=== PATIENT | male | born 1965 | race Two or more races ===

== ENCOUNTER → 2020-09-22 15:28 | Outpatient (BNVA) | payer OTHER, SELFPAY | PROVIDERS: Visit Provider Urology | DX: N40.1 Benign prostatic hyperplasia with lower urinary tract symptoms (principal); N13.8 Other obstructive and reflux uropathy; R35.1 Nocturia; R39.12 Poor urinary stream | CPT/HCPCS: 99202 ==

== ENCOUNTER 2021-03-24 10:12 | Outpatient (REF) | payer OTHER, SELFPAY | END 2021-03-24 10:13 | disposition home or self-care (01) | LOC: HO.10HDL 10:12 | PROVIDERS: Visit Provider Urology | DX: Z13.89 Encounter for screening for other disorder (principal) ==

== ENCOUNTER 2021-03-24 10:45 | Outpatient (REF) | payer OTHER, SELFPAY ==
[2021-03-24 14:08] LABS: PSA,Total (Free>4and<10) 3.88 ng/mL (0.00-4.00)
== END 2021-03-24 10:46 | disposition home or self-care (01) ==
LOC: HO.10HDL 10:45
PROVIDERS: Visit Provider Urology
DX: Z12.5 Encounter for screening for malignant neoplasm of prostate (principal); N40.1 Benign prostatic hyperplasia with lower urinary tract symptoms; N13.8 Other obstructive and reflux uropathy
CPT/HCPCS: 36415; 84153

== ENCOUNTER → 2021-04-04 09:12 | Outpatient (BNVA) | payer OTHER, SELFPAY | PROVIDERS: Visit Provider Urology | DX: N40.1 Benign prostatic hyperplasia with lower urinary tract symptoms (principal); R39.12 Poor urinary stream; R35.1 Nocturia; N13.8 Other obstructive and reflux uropathy; R97.20 Elevated prostate specific antigen [PSA] | CPT/HCPCS: 51798; 99212 ==

== ENCOUNTER 2021-10-10 08:43 | Outpatient (REF) | payer OTHER, SELFPAY | END 2021-10-10 08:44 | disposition home or self-care (01) | LOC: HO.LAB 08:43 | PROVIDERS: Visit Provider Urology | DX: Z12.5 Encounter for screening for malignant neoplasm of prostate (principal); N13.8 Other obstructive and reflux uropathy; N40.1 Benign prostatic hyperplasia with lower urinary tract symptoms | CPT/HCPCS: 36415; 84153 ==

== ENCOUNTER → 2021-10-13 09:18 | Outpatient (BNVA) | payer OTHER, MEDICAID, SELFPAY | PROVIDERS: Visit Provider Urology | DX: N40.1 Benign prostatic hyperplasia with lower urinary tract symptoms (principal); N13.8 Other obstructive and reflux uropathy; R35.1 Nocturia; R39.12 Poor urinary stream; R97.20 Elevated prostate specific antigen [PSA] | CPT/HCPCS: 51798; 99212 ==

== ENCOUNTER 2022-10-05 09:42 | Outpatient (REF) | payer MEDICAID, SELFPAY ==
[2022-10-05 11:47] LABS: PSA,Total (Free>4and<10) 4.03 ng/mL (0.00-4.00)
[2022-10-08 11:03] LABS: Free Prostate Spec Ag 1.1 ng/mL; Percent Free Prostate Spec Ag 26 % (calc) (>25); Prostate Specific Ag Total 4.3 ng/mL (< OR = 4.0)
== END 2022-10-05 09:43 | disposition home or self-care (01) ==
LOC: HO.LAB 09:42
PROVIDERS: Visit Provider Urology
DX: Z12.5 Encounter for screening for malignant neoplasm of prostate (principal); N13.8 Other obstructive and reflux uropathy; N40.1 Benign prostatic hyperplasia with lower urinary tract symptoms
CPT/HCPCS: 36415; 84153; 84154

== ENCOUNTER → 2022-10-12 09:03 | Outpatient (BNVA) | payer MEDICAID, SELFPAY | PROVIDERS: PCP Internal Medicine; Visit Provider Urology | DX: N40.1 Benign prostatic hyperplasia with lower urinary tract symptoms (principal); R39.12 Poor urinary stream; R35.1 Nocturia; N13.8 Other obstructive and reflux uropathy | CPT/HCPCS: 51798; 99212 ==

== ENCOUNTER → 2022-11-13 09:19 | Outpatient (BNVA) | payer MEDICAID, SELFPAY | PROVIDERS: PCP Internal Medicine; Visit Provider Urology | DX: N40.1 Benign prostatic hyperplasia with lower urinary tract symptoms (principal); N13.8 Other obstructive and reflux uropathy; R39.15 Urgency of urination | CPT/HCPCS: 52000; 99212 ==

== ENCOUNTER 2023-01-16 08:57 | Outpatient (AMB) | payer MEDICAID, SELFPAY ==
--- NOTE | 2023-01-16 09:06 | MHC.OFFVIS ---
Intake Intake Visit Reasons: 2m/med check Intake Note: Patient is present for Follow Up Medication Review Urology Med: Finasteride, Tadalafil, Tamsulosin Antibiotic Allergy:None Blood Thinner: Aspirin [facility] Allergies No Known Allergies Allergy (Verified 01/16/23 09:09) Medication List - Last Reconciled 01/16/23 by Lencho Colorado MD aspirin 81 mg PO DAILY atorvastatin 80 mg PO DAILY cetirizine 10 mg PO DAILY finasteride 5 mg PO DAILY 90 days tadalafil 5 mg PO DAILY 90 days tamsulosin 0.4 mg PO DAILY 90 days HPI HPI Comments History of Present Illness Details Mike is a pleasant male. No listed primary care. He is seen for the following urologic conditions - BPH - nocturia - elevated PSA - erectile dysfunction Jamaican translation provided by qualified medical data analyst Cystoscopy with enlarged prostate, wide base Bladder with grade 1 trabeculation Good response to tadalafil 5 mg daily Effective emptying and bladder control Lower urinary tract symptoms Initial presentation Has noticed hesitancy with stream, nocturia getting up 2 times at night Medication - alpha-jory and finasteride Metabolic - high-intensity statin PSA 07/17 4.2, 03/16 3.8, 10/15 3.9, 10/16 4.3 26% Erectile dysfunction Slowly progressive Concurrent diagnoses dyslipidemia High-intensity statin use PFSH Medical History Heart disease Seasonal allergies Subclinical hypothyroidism Review of Systems Const Denies chills and Denies fever(s) Card Reports no additional complaints and Denies syncope Resp Denies cough GI Denies abdominal pain and Denies heartburn Reports as per HPI and Denies change in libido Neuro Denies syncope Psych Denies change in libido Endo Denies change in libido Physical Exam Const General: cooperative, healthy appearing, comfortable and no acute distress Orientation/consciousness: patient oriented x3 HEENT Face and sinus: Yes normal facial exam Mouth: moist mucous membranes Neck Neck: Yes normal visual inspection, Yes full ROM and Yes trachea midline Chest Chest palpation & inspection: normal inspection of the chest Resp Effort & Inspection: normal respiratory effort, able to speak in complete sentences and no respiratory distress GI Inspection: Yes normal to inspection Back/Spine/Pelvis Cervical Spine: normal cervical lordosis Thoracic/Lumbar Spine: thoracic and lumbar spine normal to inspection Skin General skin exam: no rashes or lesions noted Neuro General: patient oriented x3, gait normal, tone normal and moves all extremities Extrem General: Yes normal to inspection and Yes capillary refill normal Assessment & Plan Assessment & Plan (1) Urinary urgency: Code(s): R39.15 - Urgency of urination (2) Nocturia more than twice per night: Code(s): R35.1 - Nocturia (3) BPH w urinary obs/LUTS: Code(s): N40.1 - Benign prostatic hyperplasia with lower urinary tract symptoms; N13.8 - Other obstructive and reflux uropathy Plan 6 month follow-up PVR Patient Instructions: Imaging studies, laboratory and physical exam results were discussed and reviewed in detail. No major barriers to patient understanding were identified. An opportunity to ask questions regarding the treatment plan was provided. All questions were answered. The patient expressed understanding and agreement with the above treatment plan. The patient is aware they should contact our office by phone for worsening of their current condition or the appearance of new urologic symptoms. Compliance is encouraged with any medications and followup testing that is ordered. It is a privilege to participate in the urologic care of your patient. If you have any questions or concerns regarding treatment for the above conditions, or other urologic issues, please do not hesitate to contact me. The office telephone contact is [phone]. This note is constructed using voice recognition software. While every effort has been made to ensure accuracy camera operator errors may have been included. Yours sincerely, Dr Lencho Colorado MD, [facility] - Urology Providers of Expert, Compassionate Care for the Genitourinary System Coding Level of Care Code Est Pt Level 3 (37671) Diagnoses Urinary urgency R39.15 Nocturia more than twice per night R35.1 BPH w urinary obs/LUTS N40.1; N13.8
== END 2023-01-16 09:40 | disposition home or self-care (01) ==
PROVIDERS: PCP Internal Medicine; Visit Provider Urology
DX: N40.1 Benign prostatic hyperplasia with lower urinary tract symptoms (principal); R39.15 Urgency of urination; R35.1 Nocturia; N13.8 Other obstructive and reflux uropathy
CPT/HCPCS: 99213

== ENCOUNTER → 2023-01-16 08:57 | Outpatient (BNVA) | payer MEDICAID, SELFPAY | PROVIDERS: PCP Internal Medicine; Visit Provider Urology | DX: N40.1 Benign prostatic hyperplasia with lower urinary tract symptoms (principal); N13.8 Other obstructive and reflux uropathy; R35.1 Nocturia; R39.15 Urgency of urination | CPT/HCPCS: 99212 ==

== ENCOUNTER 2023-07-26 08:56 | Outpatient (AMB) | payer MEDICAID, SELFPAY ==
--- NOTE | 2023-07-26 09:30 | A.OFFVIS_ITS ---
Intake Intake Visit Reasons: 6M PVR Confirmed Intake Note: Patient presents today for a follow-up on PVR Meds- Finasteride, Tadalafil, Tamsulosin Allergies to Antibiotic- No Known Allergies Blood Thinner- Aspirin Post Void Residual: 19m Patient stated he has to push to urinate and he constantly dribbles. Model Photographers' Required: Yes Accompanied by: Allergies No Known Allergies Allergy (Verified 07/26/23 09:40) Medication List - Last Reconciled 07/26/23 by Lencho Colorado MD aspirin 81 mg PO DAILY atorvastatin 80 mg PO DAILY cetirizine 10 mg PO DAILY finasteride 5 mg PO DAILY 90 days tadalafil 5 mg PO DAILY 90 days tamsulosin 0.4 mg PO DAILY 90 days terazosin 5 mg PO BEDTIME 30 days HPI HPI Comments History of Present Illness Details Mike is a pleasant male. No listed primary care. He is seen for the following urologic conditions - BPH - nocturia - elevated PSA - erectile dysfunction Kazakh translation provided by qualified medical radiation therapist Still with weakness of stream Continue with tadalafil Add terazosin Check PSA Prior Cystoscopy with enlarged prostate, wide base Bladder with grade 1 trabeculation Good response to tadalafil 5 mg daily Effective emptying and bladder control Lower urinary tract symptoms Initial presentation Has noticed hesitancy with stream, nocturia getting up 2 times at night Medication - alpha-jory and finasteride Metabolic - high-intensity statin PSA 07/17 4.2, 03/16 3.8, 10/15 3.9, 10/16 4.3 26% Erectile dysfunction Slowly progressive Concurrent diagnoses dyslipidemia High-intensity statin use [facility] Medical History Subclinical hypothyroidism Seasonal allergies Heart disease Review of Systems Const Denies chills and Denies fever(s) Card Reports no additional complaints and Denies syncope Resp Denies cough GI Denies abdominal pain and Denies heartburn Reports as per HPI and Denies change in libido Neuro Denies syncope Psych Denies change in libido Endo Denies change in libido Physical Exam Const General: cooperative, healthy appearing, comfortable and no acute distress Orientation/consciousness: patient oriented x3 HEENT Face and sinus: Yes normal facial exam Mouth: moist mucous membranes Neck Neck: Yes normal visual inspection, Yes full ROM and Yes trachea midline Chest Chest palpation & inspection: normal inspection of the chest Resp Effort & Inspection: normal respiratory effort, able to speak in complete sentences and no respiratory distress GI Inspection: Yes normal to inspection Back/Spine/Pelvis Cervical Spine: normal cervical lordosis Thoracic/Lumbar Spine: thoracic and lumbar spine normal to inspection Skin General skin exam: no rashes or lesions noted Neuro General: patient oriented x3, gait normal, tone normal and moves all extremities Extrem General: Yes normal to inspection and Yes capillary refill normal Office Procedures Post Void Residual Post Residual Void Post Void Residual (PVR): 19 [id number] Void Residual by ultrasound Assessment & Plan Assessment & Plan (1) Elevated PSA: Code(s): R97.20 - Elevated prostate specific antigen [PSA] (2) Weak urinary stream: Code(s): R39.12 - Poor urinary stream Plan 2m f/u trial terazosin Orders: Orders AMB Post Void Residual by ultrasound Today R33.9 - Retention of urine, unspecified PSA,Total (Free>4and<10) Today R97.20 - Elevated prostate specific antigen [PSA] Medications: New terazosin 5 mg PO BEDTIME 30 caps 1RF 30 days N40.1 - Benign prostatic hyperplasia with lower urinary tract symptoms, R35.0 - Frequency of micturition, R39.12 - Poor urinary stream Patient Instructions: Imaging studies, laboratory and physical exam results were discussed and reviewed in detail. No major barriers to patient understanding were identified. An opportunity to ask questions regarding the treatment plan was provided. All questions were answered. The patient expressed understanding and agreement with the above treatment plan. The patient is aware they should contact our office by phone for worsening of their current condition or the appearance of new urologic symptoms. Compliance is encouraged with any medications and followup testing that is ordered. It is a privilege to participate in the urologic care of your patient. If you have any questions or concerns regarding treatment for the above conditions, or other urologic issues, please do not hesitate to contact me. The office telephone contact is [phone]. This note is constructed using voice recognition software. While every effort has been made to ensure accuracy camelid fiber sorter errors may have been included. Yours sincerely, Dr Lencho Colorado MD, [facility] - Urology Providers of Expert, Compassionate Care for the Genitourinary System Coding Level of Care Code Est Pt Level 4 (04538) Diagnoses Elevated PSA R97.20 Weak urinary stream R39.12 CPT Codes Post Residual Void - PVR CPT Code: 78204-Uqsz Void Residual by ultrasound ([id number])
== END 2023-07-26 10:29 | disposition home or self-care (01) ==
PROVIDERS: PCP Internal Medicine; Visit Provider Urology
DX: R97.20 Elevated prostate specific antigen [PSA] (principal); R39.12 Poor urinary stream
CPT/HCPCS: 99214

== ENCOUNTER → 2023-07-26 08:56 | Outpatient (BNVA) | payer MEDICAID, SELFPAY | PROVIDERS: PCP Internal Medicine; Visit Provider Urology | DX: R97.20 Elevated prostate specific antigen [PSA] (principal); R39.12 Poor urinary stream | CPT/HCPCS: 51798; 99212 ==

== ENCOUNTER 2023-07-26 10:31 | Outpatient (REF) | payer MEDICAID, SELFPAY ==
[2023-07-26 12:08] LABS: PSA,Total (Free>4and<10) 3.54 ng/mL (0.00-4.00)
== END 2023-07-26 10:32 | disposition home or self-care (01) ==
LOC: HO.10HDL 10:31
PROVIDERS: Visit Provider Urology
DX: Z12.5 Encounter for screening for malignant neoplasm of prostate (principal); R97.20 Elevated prostate specific antigen [PSA]
CPT/HCPCS: 36415; 51798; 84153; 99212

== ENCOUNTER 2023-09-27 09:34 | Outpatient (AMB) | payer OTHER, SELFPAY ==
--- NOTE | 2023-09-27 09:35 | MHC.OFFVIS ---
Intake Visit Reasons: 2m/PSA(set) Intake Note: Patient is Present for Telephone Follow Up For Urology Med: Finasteride, Tamsulosin, Terzosin Antibiotic Allergy: None Blood Thinner: Aspirin Allergies No Known Allergies Allergy (Verified 09/27/23 09:37) Medication List - Last Reconciled 09/27/23 by Lencho Colorado MD aspirin 81 mg PO DAILY atorvastatin 80 mg PO DAILY cetirizine 10 mg PO DAILY finasteride 5 mg PO DAILY 90 days tadalafil 5 mg PO DAILY 90 days terazosin 5 mg PO BEDTIME 90 days HPI Comments Details: Mike is a pleasant male. No listed primary care. He is seen for the following urologic conditions - lower urinary tract symptoms on combination therapy - nocturia - elevated PSA - erectile dysfunction Telemedicine Evaluation 15 min Consultation Authenticlick Derek Video Vincentian translation provided by qualified medical device sales Six week follow-up trial of terazosin, review of PSA - continued ongoing care of complex chronic condition It did not pickling operator medication Prescription provided Prior Cystoscopy with enlarged prostate, wide base - Bladder with grade 1 trabeculation Good response to tadalafil 5 mg daily Effective emptying and bladder control Lower urinary tract symptoms Initial presentation Has noticed hesitancy with stream, nocturia getting up 2 times at night Medication - alpha-jory and finasteride and tadalafil Metabolic - high-intensity statin PSA 07/17 4.2, 03/16 3.8, 10/15 3.9, 10/16 4.3 26%, 09/17 3.5 Erectile dysfunction Slowly progressive Concurrent diagnoses dyslipidemia High-intensity statin use [facility] Medical History Subclinical hypothyroidism Seasonal allergies Heart disease Review of Systems Const All systems reviewed & are unremarkable except as noted in HPI and below Reports no additional complaints Resp Reports no additional complaints GI Reports no additional complaints Reports as per HPI Musc Reports no additional complaints Physical Exam Telemedicine evaluation Appropriate responses Regular breathing rate and rhythm HEENT Head: Yes normal to inspection Ears: hearing grossly normal bilaterally Eyes General: appearance normal, both eyes and all related structures Neck Neck: Yes normal visual inspection Chest Chest palpation & inspection: normal inspection of the chest Resp Effort & Inspection: normal respiratory effort and able to speak in complete sentences Telehealth Telehealth Telehealth Platform: Telephone Location of provider rendering services: practice address Location of patient: address on file Patient Identification confirmed using: Name, : Yes Telehealth method: voice only Patient verbally consented to treatment: Yes Patient verbally consented to billing insurance company: Yes Patient informed of any privacy concerns related to visit: Yes Assessment & Plan Assessment & Plan (1) Weak urinary stream: Code(s): R39.12 - Poor urinary stream Category: Medical (2) Elevated PSA: Code(s): R97.20 - Elevated prostate specific antigen [PSA] Category: Medical (3) Nocturia more than twice per night: Code(s): R35.1 - Nocturia Category: Medical (4) BPH w urinary obs/LUTS: Code(s): N40.1 - Benign prostatic hyperplasia with lower urinary tract symptoms; N13.8 - Other obstructive and reflux uropathy Category: Medical (5) Erectile dysfunction: Code(s): N52.9 - Male erectile dysfunction, unspecified Category: Medical Plan Three-month follow-up office Retrial terazosin Medications: Changed From terazosin 5 mg PO BEDTIME 30 days 30 caps 1RF N40.1 - Benign prostatic hyperplasia with lower urinary tract symptoms, R35.0 - Frequency of micturition, R39.12 - Poor urinary stream To terazosin 5 mg PO BEDTIME 90 days 90 caps 0RF N40.1 - Benign prostatic hyperplasia with lower urinary tract symptoms, R35.0 - Frequency of micturition, R39.12 - Poor urinary stream Refilled tadalafil 5 mg PO DAILY 90 days 90 tabs 1RF sexual activity N52.01 - Erectile dysfunction due to arterial insufficiency, R39.15 - Urgency of urination Discontinued tamsulosin Discontinued Reason: Patient Completed Course 0.4 mg PO DAILY 90 days 90 caps 3RF N13.8 - Other obstructive and reflux uropathy, N40.1 - Benign prostatic hyperplasia with lower urinary tract symptoms Patient Instructions: Imaging studies, laboratory and physical exam results were discussed and reviewed in detail. No major barriers to patient understanding were identified. An opportunity to ask questions regarding the treatment plan was provided. All questions were answered. The patient expressed understanding and agreement with the above treatment plan. The patient is aware they should contact our office by phone for worsening of their current condition or the appearance of new urologic symptoms. Compliance is encouraged with any medications and followup testing that is ordered. It is a privilege to participate in the urologic care of your patient. If you have any questions or concerns regarding treatment for the above conditions, or other urologic issues, please do not hesitate to contact me. The office telephone contact is [phone]. This note is constructed using voice recognition software. While every effort has been made to ensure accuracy laboratory analyst errors may have been included. Yours sincerely, Dr Lencho Colorado MD, [facility] - Urology Providers of Expert, Compassionate Care for the Genitourinary System Coding Level of Care Code Tele Est Pt Level 3 (03117) Complex EM visit Add On G2211 Diagnoses Weak urinary stream R39.12 Elevated PSA R97.20 Nocturia more than twice per night R35.1 BPH w urinary obs/LUTS N40.1; N13.8 Erectile dysfunction N52.9
== END 2023-09-27 09:59 | disposition home or self-care (01) ==
LOC: HO.HUSH 09:34
PROVIDERS: PCP Internal Medicine; Visit Provider Urology
DX: N40.1 Benign prostatic hyperplasia with lower urinary tract symptoms (principal); R39.12 Poor urinary stream; R97.20 Elevated prostate specific antigen [PSA]; R35.1 Nocturia; N13.8 Other obstructive and reflux uropathy; N52.9 Male erectile dysfunction, unspecified
CPT/HCPCS: 99213; G2211

== ENCOUNTER → 2023-09-27 09:34 | Outpatient (BNVA) | payer OTHER, SELFPAY | PROVIDERS: PCP Internal Medicine; Visit Provider Urology ==

== ENCOUNTER 2024-12-30 09:41 | Outpatient (AMB) | payer OTHER, SELFPAY ==
--- OUTSIDE RECORDS SUMMARY | 2024-12-30 10:04 | XMS_ITS | Clinical Summary ---
Author Organization [facility] Address [address] [facility] [place] [address] Phone Care Team Providers Care Casualty Claim Adjuster Name Role Phone Jose Ricks MD Primary Care Provider [phone] Allergies No known active allergies Medications aspirin 81 mg EC tablet Take 1 tablet (81 mg total) by mouth 1 (one) time each day. Active finasteride (PROSCAR) 5 mg tablet Take 1 tablet (5 mg total) by mouth 1 (one) time each day. Active terazosin (HYTRIN) 5 mg capsule Take 1 Capsule by mouth at bedtime. Active amLODIPine (NORVASC) 5 mg tabletIndications:H ypertension, unspecified type,Hyperlipidemia , unspecified hyperlipidemia type Take 1 tablet (5 mg total) by mouth 1 (one) time each day. 90 each 2 5 Active ezetimibe (ZETIA) 10 mg tablet Take 1 tablet (10 mg total) by mouth 1 (one) time each day. 90 tablet 1 5 Active Active Problems Problem Noted Date Diagnosed Date HTN (hypertension) 02/06/2024 Overview (04/10/2024): Last Assessment & Plan: The patient was noted to have elevated blood pressure on today's visit. As such, at this point, we will start amlodipine 2.5 mg orally daily for blood pressure control. Assessment & Plan (08/18/2024 12:29 PM EDT): Blood pressure is elevated today 140/94. On my recheck it was similar around 144/90. Increased amlodipine to 5 mg daily. Patient states he is able to monitor his blood pressure at home and will notify the office if it remains elevated over 140/80 regularly. I have reviewed with the patient the importance of a heart healthy lifestyle which includes eating a low-fat low-salt diet, getting regular exercise, maintaining a healthy weight, not smoking, and following up with routine medical care. Orders: Lipid panel; Future amLODIPine (NORVASC) 5 mg tablet; Take 1 tablet (5 mg total) by mouth 1 (one) time each day. Palpitation 02/06/2024 Overview (04/10/2024): Last Assessment & Plan: The patient has been experiencing episodes of palpitations. We will order a Holter monitor to evaluate for any underlying arrhythmias as a cause of her symptoms. Will also order laboratory testing that would include a comprehensive metabolic panel, CBC, magnesium level, and TSH level. HLD (hyperlipidemia) 01/30/2024 Overview (04/10/2024): Last Assessment & Plan: The patient has a history of hyperlipidemia. He was previously on atorvastatin. The patient states that he self discontinued the medication due to apparent side effects from the medication. However, the patient is not able to specifically state the side effects that he had with the medication. At this point, we will repeat his lipid panel to evaluate his lipid control. Depending on the results, then we will discuss the possibility of trying a different statin (not atorvastatin) or considering a nonstatin medication such as ezetimibe. Assessment & Plan (08/18/2024 12:29 PM EDT): Patient with history of hyperlipidemia and previous intolerance to statins. He was started on Zetia after his blood work was completed in January 2024 showing an elevated LDL cholesterol. Discussed today the importance of dietary modifications. Will recheck lipid panel. Orders: Lipid panel; Future amLODIPine (NORVASC) 5 mg tablet; Take 1 tablet (5 mg total) by mouth 1 (one) time each day. Encounters Date Type Department Care Team Description 10/16/2024 Telephone [facility] Cardiology [facility] [address] [facility] [address] [place] [id number] Sy Suggs MD records from Last 3 Months Medical History Medical History Date Comments Subclinical hypothyroidism DX:Melendez bclinical hypothyroidism Seasonal allergies DX:Seasonal a llergies High prostate specific antigen (PSA) DX:High prostate specific antigen (PSA) Benign prostatic hyperplasia without lower urinary tract symptoms DX:Benign prostatic hyper plasia without lower urinary tract symptoms Social History Tobacco Use Types Packs/Day Years Used Date Smoking Tobacco: Never Smokeless Tobacco: Never Alcohol Use Standard Drinks/Week Comments Never 0 (1 standard drink = 0.6 oz pur e alcohol) Sex and Gender Information Value Date Recorded Sex Assigned at Not on file Legal Sex Male 2:57 AM EST Gender Identity Not on file Sexual Orientation Not on file Obstetrics History Last Filed Vital Signs Vital Sign Reading Time Taken Comments Blood Pressure 140/94 08/18/2024 10:18 AM EDT Pulse 74 08/18/2024 10:18 AM EDT Temperature - - Respiratory Rate - - Oxygen Saturation 96% 08/18/2024 10:18 AM EDT Inhaled Oxygen Concentration - - Weight 85.3 kg (188 lb) 08/18/2024 10:18 AM EDT Height 172.7 cm (5' 8 ) 08/18/2024 10:18 AM EDT Body Mass Index 28.59 08/18/2024 10:18 AM EDT Plan of Treatment Upcoming Encounters Date Type Department Care Team (Late st Contact Info) Description 2025 9:00 AM EST Ancillary Procedure [facility] Cardiology [facility] [address] [place] [address] 04/05/2025 2:10 PM EST Office Visit [facility] [address] [facility] [address] [place] [phone] Josephine Jordan NP [address] [place] [address] [address] [place] [address] Health Maintenance Due Date Last Done Comments Pneumococcal Vaccine: 50+ Years (1 of 1 - PCV) 2014 COVID-19 Vaccine ( season) 2024 09/30/2020, 09/09/2020 Social Influencers of Health Screening 03/05/2024 Depression Screening 05/27/2024 Colorectal Cancer Screening: Stool Based Tests (FOBT/FIT) 11/19/2024 11/20/2023 Influenza Vaccine (#1) 2025 Hypertension/CHF/CAD Annual BMP Blood Test 03/26/2025 03/26/2024 Cholesterol Screening (Lipid Panel) 08/18/2029 08/18/2024, 03/26/2024, 03/26/2024, Additional history exists DTaP,Tdap,and Td Vaccines (2 - Td or Tdap) 10/27/2030 10/27/2020 RSV Immunization Adult Patients (1 - 1-dose 75+ series) 2039 HIV Screening Completed 11/25/2018 Hepatitis C Screening Completed 11/25/2018, 019 Zoster Vaccines Completed 09/06/2021, 10/27/2020 HIB Vaccines Aged Out No longer eligi ble based on patient's age to complete this topic HPV Vaccines Aged Out No longer eligi ble based on patient's age to complete this topic Hepatitis A Vaccines Aged Out No long er eligible based on patient's age to complete this topic Hepatitis B Vaccines Aged Out No long er eligible based on patient's age to complete this topic IPV Vaccines Aged Out No longer eligi ble based on patient's age to complete this topic MMR Vaccines Aged Out No longer eligi ble based on patient's age to complete this topic Meningococcal ACWY Vaccine Aged Out N o longer eligible based on patient's age to complete this topic Meningococcal B Vaccine Aged Out No l onger eligible based on patient's age to complete this topic RSV Immunization Patients Under 20 months Aged Out No longer eligible based on patient's age to complete this topic Varicella Vaccines Aged Out No longer eligible based on patient's age to complete this topic Procedures Procedure Name Priority Date/Time Associated Diagnosis Comments LIPID PANEL Routine 08/18/2024 11:24 AM EDT Hypertension, unspecified type Hyperlipidemia, unspecified hyperlipidemia type from Last 3 Months or Most Recently Relevant to Health Maintenance Results * (ABNORMAL) Lipid panel (08/18/2024 11:24 AM EDT) Cholesterol Total 233(H) 100 - 199 mg/dL [facility] Triglycerides 172(H) 0 - 149 mg/dL [facility] 1 HDL Cholesterol 47 >39 mg/dL [facility] 1 VLDL Cholesterol Calculated 31 5 - 40 mg/dL [facility] 1 LDL Chol Calc (NIH) 155(H) 0 - 99 mg/dL [facility] 1 Blood Venous blood specimen / Unknown 08/18/2024 11:24 AM EDT 08/18/2024 Narrative [facility] 1 - 08/19/2024 1:06 AM EDT Performed at: 01 - [facility] [address] [id number] Sales Representative Public Utilities: Lisa Oleary MD, Phone: [phone] us Kiara Bello NP LAB BLOOD ORDERABLES Final Res ult [facility] 1 from Last 3 Months or Most Recently Relevant to Health Maintenance Insurance [facility] Care Teams Casualty Claim Adjuster Relationship Specialty Start Date End Date Jose Ricks MD [address] [place] [address] PCP - General 08/14/18
--- OUTSIDE RECORDS SUMMARY | 2024-12-30 10:04 | XMS_ITS | Clinical Summary ---
Author Organization [facility] Address [address] [place] [address] Care Team Providers Care Equipment Maintenance Tech Name Role Phone Jose Ricks MD Primary Care Provider [phone] Source Comments PLEASE NOTE, if this patient is a minor, it may be UNLAWFUL to discuss sensitive information that is contained in these records (such as FAMILY PLANNING, MENTAL HEALTH or SUBSTANCE ABUSE) with the minor patient's parent or other person without the patient's specific authorization.[facility] Allergies No known active allergies Medications acetaminophen (TYLENOL) 500 mg tabletIndications: Viral upper respiratory tract infection Take 1 Tablet by mouth every 6 (six) hours as needed for pain or fever 60 Tablet 1 4 Active aspirin [address] tabletIndications: Other hyperlipidemia TAKE 1 TABLET BY MOUTH EVERY DAY 90 Tablet 2 5 Active amLODIPine (NORVASC) 2.5 mg tabletIndications: Primary hypertension Take 1 Tablet by mouth once daily. 90 Tablet 5 Active atorvastatin (LIPITOR) 80 mg tabletIndications: Other hyperlipidemia Take 1 Tablet by mouth once daily. 90 Tablet 1 5 Active cetirizine (ZYRTEC) 10 mg tabletIndications: Seasonal allergies Take 1 Tablet by mouth once daily. 90 Tablet 5 Active clobetasoL (TEMOVATE) 0.05 % ointmentIndication s:Poison carmelita dermatitis Apply topically 2 (two) times daily. 30 g 5 Active finasteride (PROSCAR) 5 mg tabletIndications: Benign prostatic hyperplasia without lower urinary tract symptoms Take 1 Tablet by mouth once daily. 90 Tablet 1 5 Active tadalafiL (CIALIS) 5 mg tablet Take 1 Tablet by mouth once daily as needed for erectile dysfunction. 5 Active ezetimibe (ZETIA) 10 mg tabletIndications: Other hyperlipidemia Take 1 Tablet by mouth once daily. 90 Tablet 1 5 Active terazosin (HYTRIN) 5 mg capsuleIndications :Primary hypertension Take 1 Capsule by mouth nightly at bedtime. 90 Capsule 5 Active Active Problems Problem Noted Date Diagnosed Date Benign prostatic hyperplasia without lower urinary tract symptoms 10/12/2020 Overview (10/12/2020): Sees Urologist and is on Flomax High prostate specific antigen (PSA) 03/16/2020 Overview (03/16/2020): Borderline high 4.2 Referred to urologist Seasonal allergies 01/20/2020 Subclinical hypothyroidism 08/27/2018 Other hyperlipidemia 07/16/2018 Heart disease 07/16/2018 Overview (02/03/2019): Per Pt Heart surgery for Valve Mitral valve in [facility] in 2008 Pt sees Cardiology [facility] Transthoracic Echo August 2018= EF 45-50 %, S/P mitral valves repair,mild MS, trace TR, mild, TR without evidence of Pulmonary HTN. On ASA 81 mg, Atorvastatin 20 mg and Fish oil 1000 mg once a day Encounters Date Type Department Care Team Description 11/24/2024 9:40 AM EDT Office Visit [address] [phone] Katie Bell NP from Last 3 Months Immunizations Immunization Administration Dates Next Due TDAP 10/27/2020 ZOSTER VACCINE, RECOMBINANT (SHINGRIX) 2,10/27/2020 Family History Relation Name Status Comments Brother Alive Father Alive Mother Alive Sister Alive Social History Tobacco Use Types Packs/Day Years Used Date Smoking Tobacco: Never Passive Smoke Exposure: Never Smokeless Tobacco: Never Alcohol Use Standard Drinks/Week Comments No 0 (1 standard drink = 0.6 oz pur e alcohol) Social Connections Answer Date Recorded How often do you feel lonely or isolated from th ose around you? 1 01/01/2024 Financial Resource Strain Answer Date R ecorded Hard to pay for: Food 1 01/01/2024 Stress Answer Date Recorded Do you feel these kinds of stress these days? 1 01/01/2024 Physical Activity Answer Date Recorded Physical Activity 0 01/12/2019 Food Insecurity Answer Date Recorded Hard to pay for: Food 1 01/01/2024 Transportation Needs Answer Date Record ed Hard to pay for: Transportation 1 01/01/2024 Housing Stability Answer Date Recorded Hard to pay for: Rent/Mortgage payment 1 01/01/2024 Safety and Environment Answer Date Travis rded Safety 0 09/06/2021 Utilities Answer Date Recorded Hard to pay for: Utilities 1 12/31 Employment Answer Date Recorded Stress 0 08/14/2021 Sex and Gender Information Value Date Recorded Sex Assigned at Male 07/16/2018 7:37 AM PST Legal Sex Male 11:58 AM PST Gender Identity Male 07/16/2018 7:37 AM PST Sexual Orientation Straight 07/16/2018 7: 37 AM PST Last Filed Vital Signs Vital Sign Reading Time Taken Comments Blood Pressure 150/100 11/24/2024 10:14 AM EDT Pulse 70 11/24/2024 10:14 AM EDT Temperature 36.8 C (98.3 F) 03/26/2024 10:50 AM EDT Respiratory Rate 20 11/24/2024 10:14 AM EDT Oxygen Saturation 99% 11/24/2024 10:14 AM EDT Inhaled Oxygen Concentration - - Weight 85.9 kg (189 lb 6.4 oz) 11/24/2024 10:14 AM EDT Height 172.7 cm (5' 8 ) 03/26/2024 10:50 AM EDT Body Mass Index 28.8 03/26/2024 10:50 AM EDT Plan of Treatment Health Maintenance Due Date Last Done Comments CT Colonography 2009 Colonoscopy 2009 Fecal DNA 2009 Flexible Sigmoidoscopy 2009 Imm-Pneumococcal 50+ (1 of 1 - PCV) 2014 Alcohol and Drug Screen 05/27/2024 12/31/19 24, 08/16/2023, 09/27/2022, Additional history exists Depression Annual Screen 05/27/2024 01/01/2024, 07/26 Colorectal Cancer Screening 11/19/2024 FIT/gFOBT 11/19/2024 11/20/2023, 09/15/2021 Anxiety Screening 12/31/2024 01/01/2024 Annual Wellness (Adult): Indicated (All Coverage) 03/26/2025 03/26/2024, 09/27/2022, 10/12/2020, Additional history exists TSH Monitoring 03/26/2025 03/26/2024, 08/2022, 12/22/2021, Additional history exists Lipid Screening 08/18/2025 08/18/2024, 02/26, 05/17/2023, Additional history exists Tobacco Screening 11/24/2025 11/24/2024 Diabetes Screening 03/26/2027 03/26/2024, 1 , 09/27/2022, Additional history exists Imm-DTaP/Tdap/Td (2 - Td or Tdap) 10/27/2030 021 HIV Screening Completed 11/25/2018 Hepatitis C Screening Completed 11/25/2018 Omh-MSCOC-32 Discontinued 09/30/2020, 09/09/2020 Imm-Zoster, Recombinant Completed 09/06/2021, 10/27 Imm-Hepatitis B Discontinued Imm-Influenza Discontinued Procedures Procedure Name Priority Date/Time Associated Diagnosis Comments ASSAY OF THYROID STIMULATING HORMONE TSH Routine 03/26/2024 11:16 AM EDT Routine general medical examination at a health care facility Other hyperlipidemia HEMOGLOBIN GLYCOSYLATED A1C Routine 03/26/2024 11:16 AM EDT Routine general medical examination at a health care facility Health care maintenance LIPID PANEL Routine 03/26/2024 11:16 AM EDT Routine general medical examination at a health care facility Other hyperlipidemia FECAL GLOBIN BY IMMUNOCHEMISTRY (FIT) Routine 11/20/2023 8:00 PM EDT Screen for colon cancer ANTIBODY HIV-1&HIV-2 SINGLE RESULT Routine 11/25/2018 9:10 AM EDT Health care maintenance HEPATITIS C ANTIBODY Routine 11/25/2018 9:10 AM EDT Health care maintenance from Last 3 Months or Most Recently Relevant to Health Maintenance Results * ASSAY OF THYROID STIMULATING HORMONE TSH (03/26/2024 11:16 AM EDT) TSH 3.02 0.40 - 4.50 mIU/L [facility] Blood Blood / Unknown 03/26/2024 1 1:16 AM EDT 03/26/2024 11:17 AM EDT Narrative [facility] - 03/27/2024 6:01 AM EDT FASTING:YES us Jose Ricks MD LAB - BLOOD DRAW Final Result Performing Organization Address [facility]/ZIP Co de Phone Number [facility] [address] [address], [facility] [address] [place] [phone] * HEMOGLOBIN GLYCOSYLATED A1C (03/26/2024 11:16 AM EDT) HEMOGLOBIN A1C 5.5 <5.7 % of total Hgb [facility] Comment: For the purpose of screening for the presence of diabetes: <5.7% Consistent with the absence of diabetes 5.7-6.4% Consistent with increased risk for diabetes (prediabetes) > or =6.5% Consistent with diabetes This assay result is consistent with a decreased risk of diabetes. Currently, no consensus exists regarding use of hemoglobin A1c for diagnosis of diabetes in children. According to [place] Diabetes Association (ADA) guidelines, hemoglobin A1c <7.0% represents optimal control in non- diabetic patients. Different metrics may apply to specific patient populations. Standards of Medical Care in Diabetes(ADA). Blood Blood / Unknown 03/26/2024 1 1:16 AM EDT 03/26/2024 11:17 AM EDT Narrative [facility] - 03/27/2024 6:01 AM EDT FASTING:YES us Jose Ricks MD LAB - BLOOD DRAW Edited Result - Final [facility] [address] [address], [facility] [address] [place] [address] * (ABNORMAL) LIPID PANEL (03/26/2024 11:16 AM EDT) CHOLESTEROL, TOTAL 242(H) <200 mg/dL [facility] [facility] HDL CHOLESTEROL 47 > OR = 40 mg/dL [employer] [facility] TRIGLYCERIDES 166(H) <150 mg/dL [facility] LDL-CHOLESTEROL 164(H) 99 mg/dL (calc) [employer] [employer] [facility] Comment: Reference range: <100 Desirable range <100 mg/dL for primary prevention; <70 mg/dL for patients with CHD or diabetic patients with > or = 2 CHD risk factors. LDL-C is now calculated using the Cindy calculation, which is a validated novel method providing better accuracy than the Friedewald equation in the estimation of LDL-C. Harpal SS et al. JUVE. 2013;310(19): 1400-1432 (http://education.Liberata/faq/LHB886) CHOL/HDLC RATIO 5.1(H) <5.0 (calc) [facility] NON-HDL CHOLESTEROL 195(H) <130 mg/dL (calc) [employer] [employer] [facility] Comment: For patients with diabetes plus 1 major ASCVD risk factor, treating to a non-HDL-C goal of <100 mg/dL (LDL-C of <70 mg/dL) is considered a therapeutic option. Blood Blood / Unknown 03/26/2024 1 1:16 AM EDT 03/26/2024 11:17 AM EDT Narrative [employer] [facility] - 03/27/2024 6:01 AM EDT FASTING:YES us Jose Ricks MD LAB - BLOOD DRAW Final Result [employer] [facility] [address] [address], [facility] [address] [place] [address] * FECAL GLOBIN BY IMMUNOCHEMISTRY (FIT) (11/20/2023 8:00 PM EDT) Pathologist [facility] FECAL GLOBIN BY IMMUNOCHEMISTRY See Note [facility] Comment: FECAL GLOBIN BY IMMUNOCHEMISTRY Micro Number: [id number] Test Status: Final Specimen Source: Insure (tm) fobt test card Specimen Quality: Adequate Fecal Globin: Not Detected Stool Stool specimen / Unknown 11/20/2023 8:00 PM EDT 11/25/2023 6:24 AM EDT Narrative [employer] - 11/26/2023 12:24 PM EDT SPLIT 05/17/2023 FROM [id number] Jose Ricks MD LAB BODY FLUIDS AND STOOLS AMBU LATORY Final Result Performing Organization Address City/[facility]/ZIP Co de Phone Number [facility] [address] [place] [address], [facility] [address] [address] * HEPATITIS C ANTIBODY (11/25/2018 9:10 AM EDT) Pathologist [facility] HEPATITIS C VIRUS SCREEN NEGATIVE NEGATIVE [facility] Blood specimen (specimen) Blood / Unknown 11/25/2018 9:10 AM EDT 11/25/2018 9:38 AM EDT [facility] - 11/25/2018 12:53 PM EDT [employer], a member of [address] [address] Commissions Specialist - Elisabeth Lombardi MD PT ID [id number] ORD# [id number] Jose Ricks MD LAB - BLOOD DRAW Final Result [address] [address], * HIV future (11/25/2018 9:10 AM EDT) [facility] HIV 1 AND 2 ANTIBODY SCREEN NEGATIVE NEGATIVE [facility] Comment: This assay is a 4th generation assay allowing for earlier detection of HIV infection by detecting the presence of the HIV-1 p24 antigen as well as the traditional antibodies to HIV type 1 (including group O) and type 2. Use of a 4th generation assay is the current CDC recommendation for HIV screening. 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 [address] [place] [address] Care Teams Equipment Maintenance Tech Relationship Specialty Start Date End Date Jose Ricks MD [facility] [place] [address] PCP - General Internal Medicine 06/12/18
--- NOTE | 2024-12-30 10:06 | A.OFFVIS_ITS ---
Intake Visit Reasons: follow up Intake Note: Patient is Present for follow up Urology Med: Finasteride, Tamsulosin, Terzosin Antibiotic Allergy: None Blood Thinner: Aspirin PVR:102ml Allergies No Known Allergies Allergy (Verified 12/30/24 10:07) HPI Comments Details: Mike is a pleasant male. No listed primary care. He is seen for the following urologic conditions - lower urinary tract symptoms on combination therapy - nocturia - elevated PSA - erectile dysfunction Icelandic translation provided by qualified director medical writing Three-month follow-up. On combination terazosin and finasteride PVR 100 cc Refilled finasteride and tadalafil Six-month follow-up PVR Printed information provided about [employer] Prior Cystoscopy with enlarged prostate, wide base - Bladder with grade 1 trabeculation Good response to tadalafil 5 mg daily Effective emptying and bladder control Lower urinary tract symptoms Initial presentation Has noticed hesitancy with stream, nocturia getting up 2 times at night Medication - alpha-jory and finasteride and tadalafil Metabolic - high-intensity statin PSA 07/17 4.2, 03/16 3.8, 10/15 3.9, 10/16 4.3 26%, 09/17 3.5 Erectile dysfunction Slowly progressive Concurrent diagnoses dyslipidemia High-intensity statin use [facility] Medical History Subclinical hypothyroidism Seasonal allergies Heart disease Review of Systems Const Denies chills and Denies fever(s) Card Reports no additional complaints and Denies syncope Resp Denies cough GI Denies abdominal pain and Denies heartburn Reports as per HPI and Denies change in libido Neuro Denies syncope Psych Denies change in libido Endo Denies change in libido Physical Exam Const General: cooperative, healthy appearing, comfortable and no acute distress Orientation/consciousness: patient oriented x3 HEENT Face and sinus: Yes normal facial exam Mouth: moist mucous membranes Neck Neck: Yes normal visual inspection, Yes full ROM and Yes trachea midline Chest Chest palpation & inspection: normal inspection of the chest Resp Effort & Inspection: normal respiratory effort, able to speak in complete sentences and no respiratory distress GI Inspection: Yes normal to inspection Back/Spine/Pelvis Cervical Spine: normal cervical lordosis Thoracic/Lumbar Spine: thoracic and lumbar spine normal to inspection Skin General skin exam: no rashes or lesions noted Neuro General: patient oriented x3, gait normal, tone normal and moves all extremities Extrem General: Yes normal to inspection and Yes capillary refill normal Assessment & Plan Assessment & Plan (1) BPH w urinary obs/LUTS: Code(s): N40.1 - Benign prostatic hyperplasia with lower urinary tract symptoms; N13.8 - Other obstructive and reflux uropathy Category: Medical (2) Nocturia more than twice per night: Code(s): R35.1 - Nocturia Category: Medical Plan Six-month follow-up PVR Medications: Refilled tadalafil 5 mg PO DAILY 90 tabs 1RF sexual activity 90 days N52.01 - Erectile dysfunction due to arterial insufficiency, R39.15 - Urgency of urination finasteride 5 mg PO DAILY 90 tabs 3RF 90 days N13.8 - Other obstructive and reflux uropathy, N40.1 - Benign prostatic hyperplasia with lower urinary tract symptoms Discontinued terazosin Discontinued Reason: Doctor's Order 5 mg PO BEDTIME 90 days 90 caps 0RF N40.1 - Benign prostatic hyperplasia with lower urinary tract symptoms, R35.0 - Frequency of micturition, R39.12 - Poor urinary stream Patient Instructions: This note is constructed using voice recognition software. While every effort has been made to ensure accuracy transcription coordinator errors may have been included. Imaging studies, laboratory and physical exam results were discussed and reviewed in detail. No major barriers to patient understanding were identified. An opportunity to ask questions regarding the treatment plan was provided. All questions were answered. The patient expressed understanding and agreement with the above treatment plan. The patient is aware they should contact our office by phone for worsening of their current condition or the appearance of new urologic symptoms. Compliance is encouraged with any medications and followup testing that is ordered. It is a privilege to participate in the urologic care of your patient. If you have any questions or concerns regarding treatment for the above conditions, or other urologic issues, please do not hesitate to contact me. The office telephone contact is [phone]. Sincerely, Dr Lencho Colorado MD, [facility] - Urology Compassionate Specialist Care for the Genitourinary System Coding Level of Care Code Est Pt Level 3 (60349) Complex EM visit Add On G2211 Diagnoses BPH w urinary obs/LUTS N40.1; N13.8 Nocturia more than twice per night R35.1
== END 2024-12-30 10:42 | disposition home or self-care (01) ==
LOC: HO.HUSH 09:41
PROVIDERS: PCP Internal Medicine; Visit Provider Urology
DX: N40.1 Benign prostatic hyperplasia with lower urinary tract symptoms (principal); N13.8 Other obstructive and reflux uropathy; R35.1 Nocturia; R39.15 Urgency of urination
CPT/HCPCS: 99213

== ENCOUNTER → 2024-12-30 09:41 | Outpatient (BNVA) | payer OTHER, SELFPAY | PROVIDERS: PCP Internal Medicine; Visit Provider Urology | DX: N40.1 Benign prostatic hyperplasia with lower urinary tract symptoms (principal); N13.8 Other obstructive and reflux uropathy; R35.1 Nocturia | CPT/HCPCS: 81003; 99212 ==